=== PATIENT | male | born 2000 | race Caucasian/White ===

== ENCOUNTER 2024-02-04 10:01 | Emergency (ER) | payer SELFPAY ==
[2024-02-04] MEDS: Lidocaine 1% 10 ML MDV ONE (10:22)
[2024-02-04] MEDS: Lidocaine 1% 10 ML MDV INJECT ONE (10:23)
== END 2024-02-04 10:42 | disposition home or self-care (01) ==
LOC: JD.ED 10:01
DX: S51.812A Laceration without foreign body of left forearm, initial encounter (principal); Z88.5 Allergy status to narcotic agent; W26.0XXA Contact with knife, initial encounter
CPT/HCPCS: 12001; 99282; J3490